=== PATIENT | female | born 1935 ===

== ENCOUNTER 2018-05-22 14:53 | Outpatient (RCR) | payer MEDICARE, OTHER, SELFPAY | END 2018-05-23 23:59 | disposition home or self-care (01) | LOC: MPT 14:53 | PROVIDERS: PCP Chiropractor Orthopedic; Referring Provider Chiropractor Orthopedic; Visit Provider Chiropractor Orthopedic | DX: M25.552 Pain in left hip (principal); G89.29 Other chronic pain | CPT/HCPCS: 97110; 97161 ==

== ENCOUNTER 2019-05-24 06:00 | Outpatient (RCR) | payer MEDICARE, OTHER, SELFPAY | END 2019-06-21 23:59 | disposition home or self-care (01) | LOC: MPT 06:00 | PROVIDERS: PCP Chiropractor Orthopedic; Referring Provider Chiropractor Orthopedic; Visit Provider Chiropractor Orthopedic | DX: G89.29 Other chronic pain (principal); M25.552 Pain in left hip | CPT/HCPCS: 97110; 97112 ==

== ENCOUNTER 2019-06-22 06:00 | Outpatient (RCR) | payer MEDICARE, OTHER, SELFPAY | END 2019-07-22 23:59 | disposition home or self-care (01) | LOC: MPT 06:00 | PROVIDERS: PCP Chiropractor Orthopedic; Referring Provider Chiropractor Orthopedic; Visit Provider Chiropractor Orthopedic | DX: G89.29 Other chronic pain (principal); M25.552 Pain in left hip; M25.562 Pain in left knee | CPT/HCPCS: 97110; 97112 ==

== ENCOUNTER 2019-07-23 06:00 | Outpatient (RCR) | payer MEDICARE, OTHER, SELFPAY | END 2019-08-21 23:59 | disposition home or self-care (01) | LOC: MPT 06:00 | PROVIDERS: PCP Chiropractor Orthopedic; Referring Provider Chiropractor Orthopedic; Visit Provider Chiropractor Orthopedic | DX: G89.29 Other chronic pain (principal); M25.562 Pain in left knee | CPT/HCPCS: 97110; 97116 ==

== ENCOUNTER 2019-08-22 06:00 | Outpatient (RCR) | payer MEDICARE, OTHER, SELFPAY | END 2019-09-21 23:59 | disposition home or self-care (01) | LOC: MPT 06:00 | PROVIDERS: PCP Chiropractor Orthopedic; Referring Provider Chiropractor Orthopedic; Visit Provider Chiropractor Orthopedic | DX: G89.29 Other chronic pain (principal); M25.552 Pain in left hip; M25.562 Pain in left knee | CPT/HCPCS: 97110 ==

== ENCOUNTER 2019-10-22 06:00 | Outpatient (RCR) | payer MEDICARE, OTHER, SELFPAY | END 2019-11-21 23:59 | disposition home or self-care (01) | LOC: MPT 06:00 | PROVIDERS: PCP Chiropractor Orthopedic; Visit Provider Chiropractor Orthopedic | DX: G89.29 Other chronic pain (principal); M25.552 Pain in left hip; M25.562 Pain in left knee | CPT/HCPCS: 97110; 97116; 97164 ==

== ENCOUNTER 2019-11-22 06:00 | Outpatient (RCR) | payer MEDICARE, OTHER, SELFPAY | END 2019-12-22 23:59 | disposition home or self-care (01) | LOC: MPT 06:00 | PROVIDERS: PCP Chiropractor Orthopedic; Visit Provider Chiropractor Orthopedic | DX: G89.29 Other chronic pain (principal); M25.552 Pain in left hip; M25.562 Pain in left knee | CPT/HCPCS: 97110; 97116 ==

== ENCOUNTER 2019-12-23 06:00 | Outpatient (RCR) | payer MEDICARE, OTHER, SELFPAY | END 2020-01-21 23:59 | disposition home or self-care (01) | LOC: MPT 06:00 | PROVIDERS: PCP Chiropractor Orthopedic; Visit Provider Chiropractor Orthopedic | DX: G89.29 Other chronic pain (principal); M54.5 Low back pain | CPT/HCPCS: 97110 ==

== ENCOUNTER 2020-01-22 06:00 | Outpatient (RCR) | payer MEDICARE, OTHER, SELFPAY | END 2020-02-21 23:59 | disposition home or self-care (01) | LOC: MPT 06:00 | PROVIDERS: PCP Chiropractor Orthopedic; Visit Provider Chiropractor Orthopedic | DX: M54.5 Low back pain (principal); G89.29 Other chronic pain | CPT/HCPCS: 97110; 97140; 97164 ==

== ENCOUNTER 2020-02-22 06:00 | Outpatient (RCR) | payer MEDICARE, OTHER, SELFPAY | END 2020-03-22 23:59 | disposition home or self-care (01) | LOC: MPT 06:00 | PROVIDERS: PCP Chiropractor Orthopedic; Visit Provider Chiropractor Orthopedic | DX: M25.552 Pain in left hip (principal); G89.29 Other chronic pain | CPT/HCPCS: 97110; 97140 ==

== ENCOUNTER 2020-04-23 06:00 | Outpatient (RCR) | payer MEDICARE, OTHER, SELFPAY | END 2020-05-23 23:59 | disposition home or self-care (01) | LOC: MPT 06:00 | PROVIDERS: PCP Chiropractor Orthopedic; Visit Provider Chiropractor Orthopedic | DX: M25.552 Pain in left hip (principal); G89.29 Other chronic pain; M25.562 Pain in left knee | CPT/HCPCS: 97110; 97140 ==

== ENCOUNTER 2020-05-24 06:00 | Outpatient (RCR) | payer MEDICARE, OTHER, SELFPAY | END 2020-06-20 23:59 | disposition home or self-care (01) | LOC: MPT 06:00 | PROVIDERS: PCP Chiropractor Orthopedic; Visit Provider Chiropractor Orthopedic | DX: M25.552 Pain in left hip (principal); G89.29 Other chronic pain; M25.562 Pain in left knee | CPT/HCPCS: 97110; 97140 ==

== ENCOUNTER 2020-06-21 06:00 | Outpatient (RCR) | payer MEDICARE, OTHER, SELFPAY | END 2020-07-21 23:59 | disposition home or self-care (01) | LOC: MPT 06:00 | PROVIDERS: PCP Chiropractor Orthopedic; Visit Provider Chiropractor Orthopedic | DX: M54.9 Dorsalgia, unspecified (principal); G89.29 Other chronic pain | CPT/HCPCS: 97110; 97140; L0637 ==

== ENCOUNTER 2020-07-22 06:00 | Outpatient (RCR) | payer MEDICARE, OTHER, SELFPAY | END 2020-08-20 23:59 | disposition home or self-care (01) | LOC: MPT 06:00 | PROVIDERS: PCP Chiropractor Orthopedic; Visit Provider Chiropractor Orthopedic | DX: M54.40 Lumbago with sciatica, unspecified side (principal); G89.29 Other chronic pain | CPT/HCPCS: 97110; 97140 ==

== ENCOUNTER 2020-08-21 06:00 | Outpatient (RCR) | payer MEDICARE, OTHER, SELFPAY | END 2020-09-20 23:59 | disposition home or self-care (01) | LOC: MPT 06:00 | PROVIDERS: PCP Chiropractor Orthopedic; Visit Provider Chiropractor Orthopedic | DX: M54.40 Lumbago with sciatica, unspecified side (principal); G89.29 Other chronic pain | CPT/HCPCS: 97110; 97140 ==

== ENCOUNTER 2021-01-06 06:00 | Outpatient (RCR) | payer MEDICARE, OTHER, SELFPAY | END 2021-01-20 23:59 | disposition home or self-care (01) | LOC: MPT 06:00 | PROVIDERS: PCP Chiropractor Orthopedic; Referring Provider Chiropractor Orthopedic; Visit Provider Chiropractor Orthopedic | DX: M54.5 Low back pain (principal); G89.29 Other chronic pain | CPT/HCPCS: 97110; 97140; 97162 ==

== ENCOUNTER 2021-02-21 06:00 | Outpatient (RCR) | payer MEDICARE, OTHER, SELFPAY | END 2021-03-22 23:59 | disposition home or self-care (01) | LOC: MPT 06:00 | PROVIDERS: PCP Chiropractor Orthopedic; Referring Provider Chiropractor Orthopedic; Visit Provider Chiropractor Orthopedic | DX: M54.50 Low back pain, unspecified (principal); G89.29 Other chronic pain; R26.89 Other abnormalities of gait and mobility | CPT/HCPCS: 97110; 97140 ==

== ENCOUNTER 2021-03-23 06:00 | Outpatient (RCR) | payer MEDICARE, OTHER, SELFPAY | END 2021-04-22 23:59 | disposition home or self-care (01) | LOC: MPT 06:00 | PROVIDERS: PCP Chiropractor Orthopedic; Referring Provider Chiropractor Orthopedic; Visit Provider Chiropractor Orthopedic | DX: M54.50 Low back pain, unspecified (principal); G89.29 Other chronic pain; R26.89 Other abnormalities of gait and mobility | CPT/HCPCS: 97110; 97140 ==

== ENCOUNTER → 2021-05-06 13:59 | Outpatient (BNVA) | payer MEDICARE, OTHER, SELFPAY | PROVIDERS: PCP Chiropractor Orthopedic; Visit Provider Emergency Medicine | DX: Z20.822 Contact with and (suspected) exposure to COVID-19 (principal) | CPT/HCPCS: 87635 ==

== ENCOUNTER 2021-07-14 06:00 | Outpatient (RCR) | payer MEDICARE, OTHER, SELFPAY | END 2021-07-21 23:59 | disposition home or self-care (01) | LOC: MPT 06:00 | PROVIDERS: PCP Chiropractor Orthopedic; Referring Provider Nurse Practitioner Family; Visit Provider Nurse Practitioner Family | DX: R26.89 Other abnormalities of gait and mobility (principal) | CPT/HCPCS: 97110; 97140; 97162 ==

== ENCOUNTER 2021-07-22 06:00 | Outpatient (RCR) | payer MEDICARE, OTHER, SELFPAY | END 2021-08-20 23:59 | disposition home or self-care (01) | LOC: MPT 06:00 | PROVIDERS: PCP Chiropractor Orthopedic; Referring Provider Nurse Practitioner Family; Visit Provider Nurse Practitioner Family | DX: R26.89 Other abnormalities of gait and mobility (principal) | CPT/HCPCS: 97110; 97140 ==

== ENCOUNTER 2021-08-21 06:00 | Outpatient (RCR) | payer MEDICARE, OTHER, SELFPAY | END 2021-09-20 23:59 | disposition home or self-care (01) | LOC: MPT 06:00 | PROVIDERS: PCP Chiropractor Orthopedic; Referring Provider Nurse Practitioner Family; Visit Provider Nurse Practitioner Family | DX: R26.89 Other abnormalities of gait and mobility (principal) | CPT/HCPCS: 97110; 97140 ==

== ENCOUNTER 2021-09-21 06:00 | Outpatient (RCR) | payer MEDICARE, OTHER, SELFPAY | END 2021-10-20 23:59 | disposition home or self-care (01) | LOC: MPT 06:00 | PROVIDERS: PCP Chiropractor Orthopedic; Referring Provider Nurse Practitioner Family; Visit Provider Nurse Practitioner Family | DX: R26.81 Unsteadiness on feet (principal); M62.81 Muscle weakness (generalized) | CPT/HCPCS: 97110; 97140 ==

== ENCOUNTER 2021-10-21 06:00 | Outpatient (RCR) | payer MEDICARE, OTHER, SELFPAY | END 2021-11-20 23:59 | disposition home or self-care (01) | LOC: MPT 06:00 | PROVIDERS: PCP Chiropractor Orthopedic; Referring Provider Nurse Practitioner Family; Visit Provider Nurse Practitioner Family | DX: R26.81 Unsteadiness on feet (principal); M62.81 Muscle weakness (generalized) | CPT/HCPCS: 97110; 97140 ==